=== PATIENT | female | born 1990 | race Caucasian/White ===

== ENCOUNTER → 2018-04-04 07:54 | Outpatient (CLI) | payer OTHER, SELFPAY ==
[2018-04-04 08:40] LABS: Add Manual Diff / Slide Review NO; Basophils Percent Auto 0.6 % (0-2); Eosinophils Percent Auto 9.7 % (2-4); Hematocrit 40.8 % (36-46); Hemoglobin 14.1 g/dL (12.0-16.0); Lymphocytes Percent Auto 34.3 % (25-40); Mean Corpuscular HGB Conc 34.4 % (30-36); Mean Corpuscular Hemoglobin 30.8 PG (26-34); Mean Corpuscular Volume 89.4 fL (80-100); Monocytes Percent Auto 8.6 % (3-14); Neutrophils Absolute Auto 2600 /uL (3000-5900); Neutrophils Percent Auto 46.8 % (50-75); Platelet Count 279 X10^3/uL (150-400); Red Blood Cell Count 4.57 X10^6/uL (4.0-5.2); White Blood Cell Count 5.6 X10^3/uL (4.5-11.0)
[2018-04-04 09:11] LABS: Alanine Aminotransferase 17 IU/L (9-52); Albumin 4.5 g/dL (3.5-5.0); Albumin Globulin Ratio 1.5 (1.0-2.8); Alkaline Phosphatase 32 U/L (38-126); Aspartate Aminotransferase 22 IU/L (14-36); BUN Creatinine Ratio 21.4 (6-22); Bilirubin Total 0.7 mg/dL (0.2-1.3); Blood Urea Nitrogen 15 mg/dL (7-17); Carbon Dioxide 25 mmol/L (22-32); Chloride 103 mmol/L (98-107); Cholesterol 152 mg/dL (140-199); Estimated Glomerular Filt Rate > 60.0 mL/min (>60); Globulin 3.1 g/dL (1.7-4.1); Glucose 93 mg/dL (70-100); HDL Cholesterol 68 mg/dL (40-60); HEMOLYSIS < 15 (0-50); LDL Cholesterol Calculated 72 mg/dL (<100); Potassium 3.6 mmol/L (3.4-5.1); Sodium 142 mmol/L (137-145); Total Protein 7.6 g/dL (6.3-8.2); Triglycerides 60 mg/dL (35-150)
[2018-04-04 09:38] LABS: Thyroid Stimulating Hormone 2.73 uIU/mL (0.47-4.68)
== END ==
PROVIDERS: Visit Provider Family Medicine
DX: Z13.220 Encounter for screening for lipoid disorders (principal); Z13.29 Encounter for screening for other suspected endocrine disorder; Z51.81 Encounter for therapeutic drug level monitoring
CPT/HCPCS: 36415; 80053; 80061; 84443; 85025

== ENCOUNTER → 2020-03-14 09:59 | Outpatient (CLI) | payer OTHER, SELFPAY ==
[2020-03-14 10:48] LABS: Add Manual Diff / Slide Review NO; Basophils Absolute Auto 0 /uL (0-100); Basophils Percent Auto 1.1 % (0-2); Eosinophils Absolute Auto 100 /uL (0-450); Eosinophils Percent Auto 3.6 % (2-4); Hematocrit 39.3 % (36-46); Hemoglobin 13.4 g/dL (12.0-16.0); Lymphocytes Absolute Auto 1600 /uL (1100-4500); Lymphocytes Percent Auto 39.3 % (25-40); Mean Corpuscular Hemoglobin 30.7 PG (26-34); Mean Corpuscular Volume 90.4 fL (80-100); Monocytes Absolute Auto 400 /uL (0-900); Monocytes Percent Auto 9.8 % (3-14); Neutrophils Absolute Auto 1900 /uL (1500-7000); Neutrophils Percent Auto 46.2 % (50-75); Platelet Count 279 X10^3/uL (150-400); Red Blood Cell Count 4.35 X10^6/uL (4.0-5.2); Red Cell Distribution Width 12.7 % (11.6-14.8); White Blood Cell Count 4.1 X10^3/uL (4.5-11.0)
[2020-03-14 11:03] LABS: Alanine Aminotransferase 9 IU/L (<35); Albumin 4.3 g/dL (3.5-5.0); Albumin Globulin Ratio 1.4 (1.0-2.8); Alkaline Phosphatase 29 U/L (38-126); Aspartate Aminotransferase 24 IU/L (14-36); BUN Creatinine Ratio 22.6 (6-22); Bilirubin Total 0.5 mg/dL (0.2-1.3); Blood Urea Nitrogen 14 mg/dL (7-17); Calcium 9.1 mg/dL (8.4-10.2); Carbon Dioxide 28 mmol/L (22-32); Chloride 107 mmol/L (98-107); Cholesterol 158 mg/dL (140-199); Estimated Glomerular Filt Rate > 60.0 mL/min (>60); Globulin 3.1 g/dL (1.7-4.1); Glucose 84 mg/dL (70-100); HDL Cholesterol 63 mg/dL (40-60); HEMOLYSIS < 15 (0-50); LDL Cholesterol Calculated 86 mg/dL (<100); Potassium 4.2 mmol/L (3.4-5.1); Sodium 139 mmol/L (137-145); Total Protein 7.4 g/dL (6.3-8.2); Triglycerides 46 mg/dL (35-150)
[2020-03-14 12:06] LABS: TSH w/ Reflex to FT4 1.28 uIU/mL (0.47-4.68)
== END ==
PROVIDERS: Family Provider Family Medicine; PCP Family Medicine; Referring Provider Family Medicine; Visit Provider Family Medicine
DX: Z00.01 Encounter for general adult medical examination with abnormal findings (principal)
CPT/HCPCS: 36415; 80053; 80061; 84443; 85025

== ENCOUNTER → 2021-06-19 07:54 | Outpatient (CLI) | payer OTHER, SELFPAY ==
[2021-06-19 08:56] LABS: Add Manual Diff / Slide Review NO; Basophils Absolute Auto 0 /uL (0-100); Basophils Percent Auto 0.9 % (0-2); Eosinophils Absolute Auto 200 /uL (0-450); Hematocrit 37.6 % (36-46); Hemoglobin 12.7 g/dL (12.0-16.0); Lymphocytes Absolute Auto 1700 /uL (1100-4500); Lymphocytes Percent Auto 38.9 % (25-40); Mean Corpuscular HGB Conc 33.8 % (30-36); Mean Corpuscular Hemoglobin 30.5 PG (26-34); Mean Corpuscular Volume 90.1 fL (80-100); Monocytes Absolute Auto 400 /uL (0-900); Monocytes Percent Auto 9.5 % (3-14); Neutrophils Absolute Auto 2000 /uL (1500-7000); Neutrophils Percent Auto 45.7 % (50-75); Platelet Count 250 X10^3/uL (150-400); Red Blood Cell Count 4.17 X10^6/uL (4.0-5.2); Red Cell Distribution Width 12.9 % (11.6-14.8); White Blood Cell Count 4.5 X10^3/uL (4.5-11.0)
[2021-06-19 09:12] LABS: Alanine Aminotransferase 17 IU/L (<35); Albumin 4.1 g/dL (3.5-5.0); Albumin Globulin Ratio 1.5 (1.0-2.8); Alkaline Phosphatase 26 U/L (38-126); Aspartate Aminotransferase 30 IU/L (14-36); BUN Creatinine Ratio 15.6 (6-22); Bilirubin Total 0.4 mg/dL (0.2-1.3); Blood Urea Nitrogen 10 mg/dL (7-17); Calcium 9.1 mg/dL (8.4-10.2); Carbon Dioxide 27 mmol/L (22-32); Chloride 108 mmol/L (98-107); Cholesterol 152 mg/dL (140-199); Estimated Glomerular Filt Rate > 60.0 mL/min (>60); Globulin 2.7 g/dL (1.7-4.1); Glucose 86 mg/dL (70-100); HDL Cholesterol 81 mg/dL (40-60); HEMOLYSIS < 15 (0-50); LDL Cholesterol Calculated 62 mg/dL (<100); Potassium 4.2 mmol/L (3.4-5.1); Sodium 138 mmol/L (137-145); Total Protein 6.8 g/dL (6.3-8.2); Triglycerides 47 mg/dL (35-150)
== END ==
PROVIDERS: PCP Family Medicine; Referring Provider Family Medicine; Visit Provider Family Medicine
DX: Z00.01 Encounter for general adult medical examination with abnormal findings (principal); J30.9 Allergic rhinitis, unspecified; F41.9 Anxiety disorder, unspecified; D72.819 Decreased white blood cell count, unspecified
CPT/HCPCS: 36415; 80053; 80061; 85025

== ENCOUNTER → 2022-10-01 07:53 | Outpatient (CLI) | payer OTHER, SELFPAY ==
--- NOTE | 2022-10-01 08:11 | DI.ECHO.S_ITS ---
[facility] +---------+ [facility] +---------+ : : [address] : : : : [id number] : : : : Phone: [phone]---------+ Echocardiogram Report + + :Name: DENIZ DE LUNA Study Date: 10/01/2022 Height: 64 in : :[facility] ReadingLocation: Weight: 118 lb : : Gender: Female BSA: 1.6 m2 : :: 1990 Age: 32 yrs BP: 120/70 mmHg: :Reason For Study: MURMUR HR: 70 : :Ordering Physician: DULCE, : :JOSE ANTONIO Performed By: ELIAZAR MERCADO : :Referring: JOSE ANTONIO CARDONA : + + Interpretation Summary The ejection fraction is estimated to be 55-60%. There is a small pericardial effusion noted. There is no significant valvular heart disease. Procedure: A two-dimensional transthoracic echocardiogram with color flow and Doppler was performed. The study quality was technically difficult. There is no prior echocardiogram noted for this patient. The patient was in normal sinus rhythm during the exam. Left Ventricle: The left ventricle is normal in size and wall thickness. Left ventricular systolic function is normal. The ejection fraction is estimated to be 55-60%. Left ventricular wall motion is normal. Right Ventricle: The right ventricle is normal in size and function. Atria: Both atria are normal in size. There is no Doppler evidence for an interatrial shunt. Mitral Valve: The mitral valve is normal in structure and function. There is trace mitral regurgitation. Aortic Valve: The aortic valve is not well visualized. Cannot rule out bicuspid aortic valve. There is no aortic valve stenosis. No aortic regurgitation is present. Tricuspid Valve: The tricuspid valve is normal in structure and function. No tricuspid regurgitation. Pulmonary artery pressures cannot be estimated because of the lack of a measurable TR jet velocity. Pulmonic Valve: The pulmonic valve is not well visualized. Great Vessels: The aortic root is normal size. The ascending aorta could not be visualized. The IVC is of normal diameter and collapses greater than 50% with a sniff. This suggests a low right atrial pressure of 3 mm Hg. Pericardium/ Pleura There is a small pericardial effusion noted. There is no pleural effusion. MMode/2D Measurements & Calculations LVIDd: 4.4 cm LVOT diam: 1.8 cm LVIDs: 2.5 cm Ao root diam: 3.0 cm FS: 42.4 % IVSd: 0.49 cm LVPWd: 0.60 cm LV haskins. diameter/BSA (cm/m^2): 2.8 LV sys. diameter/BSA (cm/m^2): 1.6 LA A2 area: 8.9 cm2 RA long axis: 3.7 cm LA A4 area: 13.5 cm2 RA area: 6.9 cm2 LA length (vol): 5.3 cm RA vol: 11.1 ml LA vol: 19.2 ml RA : 7.1 ml/m2 LA vol index: 12.3 ml/m2 IVC diam: 1.4 cm TAPSE: 2.4 cm Doppler Measurements & Calculations Ao V2 max: 132.2 cm/sec LVOT Max Kyle: 111.1 cm/sec Ao V2 mean: 92.8 cm/sec LV V1 max P.9 mmHg Ao max P.0 mmHg LV V1 VTI: 24.7 cm Ao mean P.8 mmHg SAMMY(I,D): 2.2 cm2 Ao V2 VTI: 28.2 cm SAMMY(V,D): 2.1 cm2 sev ratio: 0.88 SAMMY indexed to BSA (cm^2/m^2): 1.4 MV E max kyle: 86.6 cm/sec PA V2 max: 92.7 cm/sec MV A max kyle: 42.3 cm/sec PA V2 mean: 72.8 cm/sec MV E/A: 2.0 PA mean P.3 mmHg Med Peak E' Kyle: 14.0 cm/sec PA pr(Accel): 1.9 mmHg E/E' med: 6.2 Lat Peak E' Kyle: 17.6 cm/sec E/E' lat: 4.9 E/e' average: 5.6 MV dec time: 0.23 sec SV(LVOT): 61.1 ml Reading Physician:09:38 AM
== END ==
PROVIDERS: PCP Family Medicine; Referring Provider Family Medicine; Visit Provider Family Medicine
DX: I31.39 Other pericardial effusion (noninflammatory) (principal); R01.1 Cardiac murmur, unspecified
CPT/HCPCS: 93306

== ENCOUNTER → 2023-08-05 09:06 | Outpatient (CLI) | payer OTHER, SELFPAY ==
--- NOTE | 2023-08-05 09:07 | DI.ECHO.S_ITS ---
[facility] +---------+ [facility] +---------+ : : [address] : : : : [id number] : : : : Phone: [phone] +---------+ Echocardiogram Report + + :Name: DENIZ DE LUNA Study Date: 08/05/2023 Height: 63 in : :[facility] ReadingLocation: Weight: 115 lb : : Gender: Female BSA: 1.5 m2 : :: 1990 Age: 33 yrs BP: 143/86 mmHg: :Reason For Study: PERICARDIAL EFFUSION : :Ordering Physician: YVONNE, : :ANDERSON Performed By: Red Kulkarni : :Referring: ANDERSON CISNEROS : + + Interpretation Summary Limited Echo: 1) There is a trace pericardial effusion that is circumferential. 2) Compared to the Echo done 10/01/2022, no significant change when compared visually. Procedure: A two-dimensional transthoracic echocardiogram with color flow and Doppler was performed in limited views only. The study quality was technically difficult. Comparison is made with the echocardiogram of 10/01/2022. The patient was in normal sinus rhythm during the exam. The heart rate ranged between 81-101 bpm during the study. Left Ventricle: The left ventricle is normal in size and wall thickness. The ejection fraction is estimated to be 60-65%. Mitral Valve: The mitral valve is normal in structure and function. There is no mitral valve stenosis. There is no mitral regurgitation noted. Aortic Valve: The aortic valve is not well visualized. There is no aortic valve stenosis. No aortic regurgitation is present. Tricuspid Valve: The tricuspid valve is normal in structure and function. There is no tricuspid stenosis. No tricuspid regurgitation. Pulmonic Valve: The pulmonic valve is not well visualized. There is no pulmonic valvular stenosis. There is no pulmonic valvular regurgitation. Pericardium/ Pleura There is a trace pericardial effusion that is circumferential. There is no pleural effusion. MMode/2D Measurements & Calculations LVIDd: 4.1 cm LVOT diam: 1.9 cm LVIDs: 3.0 cm Ao root diam: 2.8 cm FS: 26.2 % IVSd: 0.65 cm LVPWd: 0.80 cm LV haskins. diameter/BSA (cm/m^2): 2.7 LV sys. diameter/BSA (cm/m^2): 2.0 LA A2 area: 14.1 cm2 RA long axis: 3.7 cm LA A4 area: 12.2 cm2 RA area: 7.3 cm2 LA length (vol): 4.0 cm RA vol: 12.5 ml LA vol: 36.5 ml RA : 8.2 ml/m2 LA vol index: 23.9 ml/m2 IVC diam: 1.4 cm TAPSE: 2.2 cm Doppler Measurements & Calculations Ao V2 max: 135.3 cm/sec LVOT Max Kyle: 120.8 cm/sec Ao V2 mean: 101.4 cm/sec LV V1 max P.8 mmHg Ao max P.3 mmHg LV V1 VTI: 25.4 cm Ao mean P.5 mmHg SAMMY(I,D): 2.3 cm2 Ao V2 VTI: 31.3 cm SAMMY(V,D): 2.6 cm2 sev ratio: 0.81 SAMMY indexed to BSA (cm^2/m^2): 1.5 MV E max kyle: 84.8 cm/sec PA V2 max: 142.7 cm/sec MV A max kyle: 48.3 cm/sec PA V2 mean: 107.6 cm/sec MV E/A: 1.8 PA mean P.0 mmHg Med Peak E' Kyle: 13.1 cm/sec PA pr(Accel): 19.1 mmHg E/E' med: 6.5 Lat Peak E' Kyle: 13.4 cm/sec E/E' lat: 6.3 E/e' average: 6.4 MV dec time: 0.13 sec SV(LVOT): 73.3 ml Reading Physician:05:03 AM
== END ==
LOC: ECHO 09:07
PROVIDERS: PCP Family Medicine; Referring Provider Internal Medicine Cardiovascular Disease; Visit Provider Internal Medicine Cardiovascular Disease
DX: I31.39 Other pericardial effusion (noninflammatory) (principal)
CPT/HCPCS: 93307

== ENCOUNTER → 2023-09-02 15:07 | Outpatient (CLI) | payer OTHER, SELFPAY ==
--- NOTE | 2023-09-02 | DI.NM.S_ITS ---
PROCEDURE: NM EXERCISE TREADMILL NON NUC COMPARISON: None. INDICATIONS: Other forms of dyspnea FINDINGS: The patient exercised for 8 minutes and 34 seconds reaching 92% of maximum predicted heart rate, 10.1 METs, LÁZARO +7%. Appropriate BP response to exercise. No angina, no diagnostic ST changes, and no ectopy during exercise or recovery. IMPRESSION: Low risk, normal treadmill ECG only stress test with fair exercise tolerance (10.1 METs LÁZARO +7%). Dictated by: Tom Cisneros MD on 09/02/2023 at 17:01 Approved by: Tom Cisneros MD on 09/02/2023 at 17:04
== END ==
LOC: RAD 15:07
PROVIDERS: PCP Family Medicine; Referring Provider Internal Medicine Cardiovascular Disease; Visit Provider Internal Medicine Cardiovascular Disease
DX: R06.09 Other forms of dyspnea (principal)
CPT/HCPCS: 93017

== ENCOUNTER 2024-12-28 07:11 | Day surgery (SDC) | payer OTHER, SELFPAY ==
[2024-12-28 07:45] VITALS: BP 115/71; PULSE 95; RESP 16; TEMP 37.1; O2SAT 94
--- NOTE | 2024-12-28 08:27 | PM.PREOP ---
Pre-operative Note COVID-19 COVID-19 status: Not tested Interval Note History & Physical reviewed/Exam performed by Physician: Yes Changes to H&P: No ASA Class (for procedural sedation): I
--- NOTE | 2024-12-28 08:58 | PM.OP.COLON ---
Operative Date/Time/Diagnoses Date of procedure: 12/28/24 Time of procedure: 08:58 Pre-op diagnosis: Rectal bleeding Post-op diagnosis: same Procedure & Clinicians Study performed: Colonoscopy Same procedure(s) as scheduled: Yes Surgeon: Jigar Palma Anesthesia Type: MAC +/- Procedure Notes Procedure in detail: Surgeon: Jigar Palma MD Anesthesia: Fiorella Fuentes CRNA Procedure: The patient was brought to the endoscopy suite, placed in left lateral decubitus position. The patient was connected to monitoring devices. A time-out was performed. Sedation was administered. Once the patient was adequately sedated, a digital rectal exam was performed and was normal. The scope was then inserted and advanced to the cecum where the appendiceal orifice was identified and photographed. The scope was then slowly withdrawn over greater than 6 minutes. The mucosa was thoroughly inspected. No abnormalities were found. The scope was retroflexed in the rectum. Internal hemorrhoids were noted. The scope was straightened and removed. The patient was awakened and brought to recovery. Scope withdrawal time: 8 minutes Sedation time: 13 minutes EBL: 0 Findings: Internal hemorrhoids Post-procedure Recommendations: Colonoscopy in 10 years Disposition: PACU
[2024-12-28 09:09] VITALS: BP 90/60; PULSE 72; RESP 16; O2SAT 98
[2024-12-28 09:10] VITALS: BP 91/61; PULSE 74; RESP 16; TEMP 36.2; O2SAT 98
[2024-12-28 09:15] VITALS: BP 98/51; PULSE 82; RESP 16; TEMP 36.2; O2SAT 98
== END 2024-12-28 09:43 | disposition home or self-care (01) ==
PROVIDERS: PCP Family Medicine; Referring Provider Surgery; Visit Provider Surgery
PROC: 0DJD8ZZ Inspection of Lower Intestinal Tract, Via Natural or Artificial Opening Endoscopic (ICD-10-PCS; CPT 45378; principal; 2024-12-28 08:30)
DX: K62.5 Hemorrhage of anus and rectum (principal); K64.8 Other hemorrhoids
CPT/HCPCS: 45378; J2704